=== PATIENT | male | born 1945 | race Caucasian/White ===

== ENCOUNTER → 2023-02-15 | Outpatient (CLI) | payer MEDICARE | LOC: M RAD 09:01 | PROVIDERS: ATTEND Internal Medicine Nephrology | DX: N18.31 Chronic kidney disease, stage 3a (principal); I70.1 Atherosclerosis of renal artery ==

== ENCOUNTER 2024-05-19 11:54 | Day surgery (SDC) | payer MEDICARE ==
[~2024-05-19] VITALS: Ht 172.7 cm; Wt 86.2 kg
[~2024-05-19 11:54] MED LIST: LISI40TA4 PO; LR 1,000 ML IV SCH
[2024-05-19] MEDS: PHENYLEPHRINE 2.5% OPHTH SOL 2ML OS SCH (12:52)
[2024-05-19] MEDS: CYCLOPENTOLATE 1% OPHTH SOLN 2ML BTL OS SCH (12:52)
[2024-05-19] MEDS: TETRACAINE 0.5% OPHTH SOLN 4ML OS SCH (12:52)
[2024-05-19] MEDS: FLURBIPROFEN 0.03% OPHTH SOLN 2.5 ML OS SCH (12:52)
[2024-05-19] MEDS ORDERED: MIDAZOLAM INJ 2MG/2ML VIAL As Ordered ONE (13:12)
[2024-05-19] MEDS ORDERED: fentaNYL 100 MCG/2 ML INJECTION As Ordered ONE (13:12)
[2024-05-19] MEDS: CEFUROXIME 1MG/0.1ML INTRACAMERAL INJ As Ordered ONE (14:42)
[2024-05-19] MEDS: LIDOCAINE 1% SDV 5ML VIAL As Ordered ONE (14:42)
[2024-05-19 15:08] VITALS: BP 150/71; TEMP 97; O2SAT 97
== END 2024-05-19 15:28 | disposition home or self-care (01) ==
LOC: M SDC 11:54
PROVIDERS: ATTEND Ophthalmology
DX: H25.12 Age-related nuclear cataract, left eye (principal); I10 Essential (primary) hypertension; E78.00 Pure hypercholesterolemia, unspecified; Z85.038 Personal history of other malignant neoplasm of large intestine; Z79.899 Other long term (current) drug therapy; Z90.49 Acquired absence of other specified parts of digestive tract
CPT/HCPCS: 66984; J0697; J2250; J3010; V2632